=== PATIENT | female | born 1960 | race Caucasian/White ===

== ENCOUNTER 2019-07-13 03:52 | Inpatient (IN) ==
[2019-07-13] MEDS ORDERED: Naloxone 0.4 MG/ML INJ IVP PRN (07:32)
[2019-07-13] MEDS ORDERED: Ondansetron 4 MG/2 ML VIAL IVP PRN (07:32)
[2019-07-13] MEDS ORDERED: MOM Conc 10 ML UD.LIQ PO PRN (07:32)
[2019-07-13] MEDS ORDERED: Dextrose Gel 15 GM/37.5 ML TUBE PO PRN ×2 (07:40)
[2019-07-13] MEDS ORDERED: D5% in Water 1,000 ML IVC PRN (07:40)
[2019-07-13] MEDS ORDERED: *HR* Dextrose 50 % in Water (Syg) 50 ML SYRINGE IVP PRN (07:40)
[2019-07-13 08:11] LABS: Monocytes % 8.4 %
[2019-07-13 08:12] LABS: Basophils % 0.4 %; Eosinophils % 0.1 %; Hematocrit 51.8 % (35.3-44.9); Hemoglobin 13.7 g/dL (11.5-15.4); Immature Granulocytes % 1.6 % (0-4); Lymphocytes # 0.5 K/mcL (0.6-4.6); Lymphocytes % 4.5 %; Mean Corpuscular HGB Conc 26.4 g/dL (31.6-35.5); Mean Corpuscular Volume 75.5 fL (83.0-100.0); Monocytes # 0.9 K/mcL (0.0-1.3); Neutrophils # 9.2 K/mcL (1.6-8.9); Nucleated Red Blood Cells 0.8 /100 WBC (0); Platelet Count 132 K/mcL (140-400); Red Blood Count 6.86 M/mcL (3.82-4.97); Red Cell Distribution Width 23.2 % (11.5-14.5); White Blood Count 10.8 K/mcL (4.3-11.1)
[2019-07-13 08:15] LABS: INR 1.2; Prothrombin Time 14.1 Seconds (9.4-12.1)
[2019-07-13 08:22] LABS: VBG HCO3 37 mEq/L (21-27); VBG PCO2 92 mmHg (41-51); VBG PH 7.22 pH Units (7.32-7.42); VBG PO2 172 mmHg (25-50)
[2019-07-13 08:31] LABS: BUN/Creatinine Ratio 23 (6-26); Blood Urea Nitrogen 14 mg/dL (6-20); Calcium 8.6 mg/dL (8.6-10.3); Carbon Dioxide 36 mEq/L (23-29); Chloride 99 mEq/L (98-107); Glucose 173 mg/dL (70-105); Osmolality,Calculated 295 (280-300); Potassium 4.8 mEq/L (3.5-5.1); Sodium 140 mEq/L (136-145); Troponin I 0.03 ng/mL (< 0.04); eGFR For African Americans > 60 (> 60); eGFR For Non-African Americans > 60 (> 60)
[2019-07-13 08:38] LABS: Anisocytosis 2+ (Not Present); Microcytosis Present (Not Present); Platelet Estimate Slight Decrease (Normal)
[2019-07-13] MEDS ORDERED: Perflutren Lipid Microsphere 1.3 ML in 0.9 % Sodium Chloride 8.7 ML IVP ONE (09:13)
[2019-07-13] MEDS ORDERED: Perflutren Lipid Microsphere 2 ML VIAL ONE (09:18)
[2019-07-13] MEDS: Ipratropium/Albuterol Neb 3 ML IH SCH ×3 (11:35→22:29)
[2019-07-13] MEDS: Insulin LISPRO 300 UNITS/3 ML VIAL SQ SCH ×3 (12:35→23:28)
[2019-07-13 13:39] LABS: VBG HCO3 38 mEq/L (21-27); VBG PCO2 82 mmHg (41-51); VBG PH 7.27 pH Units (7.32-7.42); VBG PO2 182 mmHg (25-50)
[2019-07-13] MEDS: Acetaminophen 325 MG TABLET PO PRN (14:38)
[2019-07-13 16:38] LABS: VBG HCO3 36 mEq/L (21-27); VBG PCO2 57 mmHg (41-51); VBG PO2 206 mmHg (25-50)
[2019-07-13] MEDS ORDERED: Acetaminophen IV 1,000 MG/100 ML INFUS..BTL IVPB ONE (18:55)
[2019-07-13] MEDS: Budesonide/Formoterol 160/4.5 1 PUFF INH IH SCH (22:29)
[2019-07-14] MEDS: Acetaminophen 325 MG TABLET PO PRN (03:05)
[2019-07-14] MEDS: Ipratropium/Albuterol Neb 3 ML IH SCH ×4 (04:11→22:06)
[2019-07-14 05:33] LABS: Red Cell Distribution Width 22.5 % (11.5-14.5)
[2019-07-14 05:36] LABS: Basophils % 0.3 %; Hematocrit 43.8 % (35.3-44.9); Hemoglobin 11.8 g/dL (11.5-15.4); Immature Granulocytes % 0.6 % (0-4); Lymphocytes # 0.5 K/mcL (0.6-4.6); Lymphocytes % 8.4 %; Mean Corpuscular HGB Conc 26.9 g/dL (31.6-35.5); Mean Corpuscular Hemoglobin 19.7 pg (28.0-33.3); Monocytes # 0.6 K/mcL (0.0-1.3); Monocytes % 9.8 %; Nucleated Red Blood Cells 0.5 /100 WBC (0); Segmented Neutrophils % 80.9 %; White Blood Count 6.2 K/mcL (4.3-11.1)
[2019-07-14 05:39] LABS: Platelet Count 83 K/mcL (140-400)
[2019-07-14 05:40] LABS: INR 1.6; Prothrombin Time 17.9 Seconds (9.4-12.1)
[2019-07-14] MEDS: Insulin LISPRO 300 UNITS/3 ML VIAL SQ SCH ×2 (05:42→22:26)
[2019-07-14 05:51] LABS: BUN/Creatinine Ratio 25 (6-26); Blood Urea Nitrogen 12 mg/dL (6-20); Calcium 8.5 mg/dL (8.6-10.3); Carbon Dioxide 36 mEq/L (23-29); Chloride 98 mEq/L (98-107); Glucose 95 mg/dL (70-105); Osmolality,Calculated 290 (280-300); Potassium 4.6 mEq/L (3.5-5.1); Sodium 140 mEq/L (136-145); eGFR For African Americans > 60 (> 60); eGFR For Non-African Americans > 60 (> 60)
[2019-07-14 06:43] LABS: Anisocytosis 2+ (Not Present); Hypochromasia Present (Not Present); Platelet Estimate Decreased (Normal); Polychromasia 1+ (Not Present)
[2019-07-14 06:44] LABS: Microcytosis Present (Not Present)
[2019-07-14] MEDS: Budesonide/Formoterol 160/4.5 1 PUFF INH IH SCH ×2 (09:48→22:06)
[2019-07-14] MEDS ORDERED: CeFAZolin Syr 3,000MG/30 ML 3,000 MG/30 ML SYRINGE IVPB ONE (10:52)
[2019-07-14] MEDS ORDERED: Ethanol\\Acetic Acid\\Na Ace\\Ben 1,000 ML IRRIG.SOLN IR ONE (10:53)
[2019-07-14] MEDS ORDERED: *HR* Vasopressin 20 UNIT/ML VIAL ONE (10:58)
[2019-07-14] MEDS ORDERED: EPHEDrine 50 MG/ML VIAL ONE (11:05)
[2019-07-14] MEDS ORDERED: *HR* FentaNYL (PF) 100 MCG/2 ML VIAL ONE (11:10)
[2019-07-14] MEDS ORDERED: *HR* Midazolam HCl 2 MG/2 ML VIAL ONE (11:10)
[2019-07-14] MEDS ORDERED: Lidocaine -MPF 2% 2 ML VIAL ONE (11:11)
[2019-07-14] MEDS ORDERED: *HR* Succinylcholine 200 MG/10 ML VIAL IVP ONE (11:11)
[2019-07-14] MEDS ORDERED: Tranexamic Acid 1,000 MG/10 ML VIAL ONE (11:11)
[2019-07-14] MEDS ORDERED: *HR* Propofol 200 MG/20 ML VIAL IVP ONE (11:12)
[2019-07-14] MEDS ORDERED: Ropivacaine/PF 0.5% 30 ML VIAL ONE (11:15)
[2019-07-14] MEDS ORDERED: ROPIVACAINE/PF/NS 0.25% 1 EACH SYRINGE INTRAART ONE ×2 (11:16)
[2019-07-14] MEDS ORDERED: Total Joint Mixture (50 ml) IR ONE (12:15)
[2019-07-14] MEDS ORDERED: *HR* Magnesium Sulfate 1 GM/2 ML VIAL ONE (12:54)
[2019-07-14] MEDS ORDERED: Ondansetron 4 MG/2 ML VIAL ONE (13:08)
[2019-07-14] MEDS ORDERED: Dexamethasone 4 MG/ML VIAL ONE (13:08)
[2019-07-14] MEDS: *HR* HYDROmorphone (PF) 1 MG/ML SYRINGE IVP PRN ×2 (15:19→15:29)
[2019-07-14 15:29] LABS: Hematocrit 36.1 % (35.3-44.9); Hemoglobin 9.9 g/dL (11.5-15.4)
[2019-07-14] MEDS ORDERED: *HR* Dextrose 50 % in Water (Syg) 50 ML SYRINGE IVP PRN (16:27)
[2019-07-14] MEDS ORDERED: Sennosides 8.6 MG TABLET PO PRN (16:27)
[2019-07-14] MEDS ORDERED: Ondansetron 4 MG/2 ML VIAL IVP PRN ×2 (16:27)
[2019-07-14] MEDS ORDERED: D5% in Water 1,000 ML IVC PRN (16:27)
[2019-07-14] MEDS ORDERED: Naloxone 0.4 MG/ML INJ IVP PRN (16:27)
[2019-07-14] MEDS ORDERED: traMADol 50 MG TABLET PO PRN (16:27)
[2019-07-14] MEDS ORDERED: MOM Conc 10 ML UD.LIQ PO PRN ×2 (16:27)
[2019-07-14] MEDS ORDERED: Dextrose Gel 15 GM/37.5 ML TUBE PO PRN ×2 (16:27)
[2019-07-14] MEDS ORDERED: Temazepam 15 MG CAPSULE PO PRN (16:27)
[2019-07-14] MEDS ORDERED: *HR* Promethazine 25 MG/ML VIAL IVP PRN (16:27)
[2019-07-14] MEDS: Ascorbic Acid 500 MG TABLET PO SCH (17:48)
[2019-07-14] MEDS ORDERED: Insulin LISPRO 300 UNITS/3 ML VIAL SQ SCH (18:00)
[2019-07-14] MEDS: ceFAZolin 3,000 MG in 0.9 % Sodium Chloride 100 ML IVPB SCH (22:18)
[2019-07-14] MEDS: Ringers Solution, Lactated 1,000 ML IVC SCH (22:19)
[2019-07-15] MEDS: *HR* OxyCODONE Immed Rel 5 MG TABLET PO PRN ×4 (01:28→17:25)
[2019-07-15] MEDS: Ipratropium/Albuterol Neb 3 ML IH SCH ×4 (03:59→21:35)
[2019-07-15 04:32] LABS: Immature Granulocytes % 0.4 % (0-4)
[2019-07-15 04:33] LABS: Basophils % 0.1 %; Hematocrit 30.6 % (35.3-44.9); Hemoglobin 8.6 g/dL (11.5-15.4); Lymphocytes # 0.4 K/mcL (0.6-4.6); Mean Corpuscular HGB Conc 28.1 g/dL (31.6-35.5); Mean Corpuscular Hemoglobin 20.3 pg (28.0-33.3); Mean Corpuscular Volume 72.3 fL (83.0-100.0); Monocytes # 0.7 K/mcL (0.0-1.3); Monocytes % 9.4 %; Red Blood Count 4.23 M/mcL (3.82-4.97); Segmented Neutrophils % 85.1 %; White Blood Count 7.7 K/mcL (4.3-11.1)
[2019-07-15 04:34] LABS: Neutrophils # 6.6 K/mcL (1.6-8.9); Platelet Count 97 K/mcL (140-400)
[2019-07-15 04:55] LABS: BUN/Creatinine Ratio 20 (6-26); Blood Urea Nitrogen 12 mg/dL (6-20); Calcium 8.1 mg/dL (8.6-10.3); Carbon Dioxide 40 mEq/L (23-29); Chloride 98 mEq/L (98-107); Glucose 157 mg/dL (70-105); Osmolality,Calculated 289 (280-300); Potassium 4.1 mEq/L (3.5-5.1); Sodium 138 mEq/L (136-145); eGFR For African Americans > 60 (> 60); eGFR For Non-African Americans > 60 (> 60)
[2019-07-15 05:00] LABS: Hypochromasia Present (Not Present); Platelet Estimate Decreased (Normal); Poikilocytosis 1+ (Not Present)
[2019-07-15] MEDS: ceFAZolin 3,000 MG in 0.9 % Sodium Chloride 100 ML IVPB SCH (05:15)
[2019-07-15] MEDS: Multivit/Ca/Min/Fe/FA 1 TAB TABLET PO SCH (07:39)
[2019-07-15] MEDS: Ascorbic Acid 500 MG TABLET PO SCH ×2 (07:39→17:25)
[2019-07-15] MEDS: Insulin LISPRO 300 UNITS/3 ML VIAL SQ SCH ×4 (09:07→20:40)
[2019-07-15] MEDS: Budesonide/Formoterol 160/4.5 1 PUFF INH IH SCH ×2 (10:13→21:35)
[2019-07-15] MEDS: Aspirin Enteric Coated 81 MG Tablet PO SCH (11:54)
[2019-07-15] MEDS ORDERED: Furosemide 20 MG TABLET PO PRN (12:42)
[2019-07-15] MEDS ORDERED: ALPRAZolam 0.5 MG TABLET PO PRN (13:19)
[2019-07-16] MEDS: Ipratropium/Albuterol Neb 3 ML IH SCH ×4 (03:34→22:09)
[2019-07-16 04:38] LABS: Basophils % 0.2 %; Red Cell Distribution Width 21.7 % (11.5-14.5)
[2019-07-16 04:40] LABS: Eosinophils % 0.8 %; Hematocrit 28.5 % (35.3-44.9); Hemoglobin 7.5 g/dL (11.5-15.4); Immature Granulocytes % 0.2 % (0-4); Lymphocytes # 0.6 K/mcL (0.6-4.6); Lymphocytes % 11.6 %; Mean Corpuscular HGB Conc 26.3 g/dL (31.6-35.5); Mean Corpuscular Hemoglobin 19.8 pg (28.0-33.3); Mean Corpuscular Volume 75.2 fL (83.0-100.0); Monocytes # 0.4 K/mcL (0.0-1.3); Monocytes % 8.4 %; Red Blood Count 3.79 M/mcL (3.82-4.97); Segmented Neutrophils % 78.8 %
[2019-07-16 04:41] LABS: Neutrophils # 3.9 K/mcL (1.6-8.9); Platelet Count 83 K/mcL (140-400)
[2019-07-16 04:53] LABS: VBG HCO3 45 mEq/L (21-27); VBG PCO2 71 mmHg (41-51); VBG PH 7.41 pH Units (7.32-7.42); VBG PO2 258 mmHg (25-50)
[2019-07-16 04:57] LABS: Anisocytosis 3+ (Not Present); Hypochromasia Present (Not Present); Macrocytosis Present (Not Present); Microcytosis Present (Not Present); Platelet Estimate Decreased (Normal)
[2019-07-16] MEDS: HYDROcodone BIT/Homatropine 5 MG TABLET PO PRN ×2 (04:59→19:13)
[2019-07-16 05:00] LABS: % Iron Saturation 5 % (15-50); Iron 12 mcg/dL (50-170); Transferrin 180 mg/dL (203-362)
[2019-07-16 05:06] LABS: BUN/Creatinine Ratio 20 (6-26); Blood Urea Nitrogen 8 mg/dL (6-20); Calcium 8.2 mg/dL (8.6-10.3); Carbon Dioxide 42 mEq/L (23-29); Chloride 94 mEq/L (98-107); Glucose 97 mg/dL (70-105); Osmolality,Calculated 286 (280-300); Potassium 3.8 mEq/L (3.5-5.1); Sodium 139 mEq/L (136-145); eGFR For African Americans > 60 (> 60); eGFR For Non-African Americans > 60 (> 60)
[2019-07-16 05:19] LABS: Ferritin 26 ng/mL (10-120)
[2019-07-16 05:25] LABS: Folate 21.7 ng/mL (3.0-16.0)
[2019-07-16] MEDS: Insulin LISPRO 300 UNITS/3 ML VIAL SQ SCH ×4 (08:41→20:21)
[2019-07-16] MEDS: Aspirin Enteric Coated 81 MG Tablet PO SCH (09:51)
[2019-07-16] MEDS: Iron Sucrose Complex 250 MG in 0.9 % Sodium Chloride 250 ML IVPB SCH (09:51)
[2019-07-16] MEDS: Ascorbic Acid 500 MG TABLET PO SCH ×2 (09:52→17:07)
[2019-07-16] MEDS: Loratadine 10 MG TABLET PO SCH (09:52)
[2019-07-16] MEDS: Multivit/Ca/Min/Fe/FA 1 TAB TABLET PO SCH (09:52)
[2019-07-16] MEDS: Budesonide/Formoterol 160/4.5 1 PUFF INH IH SCH ×2 (10:00→22:09)
[2019-07-16 10:08] LABS: VBG HCO3 43 mEq/L (21-27); VBG PCO2 63 mmHg (41-51); VBG PH 7.44 pH Units (7.32-7.42); VBG PO2 153 mmHg (25-50)
[2019-07-16] MEDS: Ringers Solution, Lactated 1,000 ML IVC SCH (17:09)
[2019-07-16] MEDS ORDERED: 0.9 % Sodium Chloride 250 ML IVC SCH (19:00)
[2019-07-16] MEDS ORDERED: Furosemide 20 MG/2 ML VIAL IVP ONE (19:00)
[2019-07-17] MEDS ORDERED: Furosemide 20 MG/2 ML VIAL IVP ONE ×2 (03:57→04:00)
[2019-07-17] MEDS: Ipratropium/Albuterol Neb 3 ML IH SCH ×4 (04:54→22:16)
[2019-07-17 05:12] LABS: VBG HCO3 42 mEq/L (21-27); VBG PCO2 55 mmHg (41-51); VBG PH 7.49 pH Units (7.32-7.42); VBG PO2 117 mmHg (25-50)
[2019-07-17 05:15] LABS: Red Cell Distribution Width 21.4 % (11.5-14.5)
[2019-07-17 05:16] LABS: Hematocrit 35.1 % (35.3-44.9); Hemoglobin 9.7 g/dL (11.5-15.4); Mean Corpuscular HGB Conc 27.6 g/dL (31.6-35.5); Mean Corpuscular Hemoglobin 21.1 pg (28.0-33.3); Mean Corpuscular Volume 76.3 fL (83.0-100.0); White Blood Count 4.5 K/mcL (4.3-11.1)
[2019-07-17 05:23] LABS: Platelet Count 99 K/mcL (140-400)
[2019-07-17 05:35] LABS: BUN/Creatinine Ratio 20 (6-26); Blood Urea Nitrogen 9 mg/dL (6-20); Calcium 8.6 mg/dL (8.6-10.3); Carbon Dioxide 41 mEq/L (23-29); Chloride 92 mEq/L (98-107); Glucose 117 mg/dL (70-105); Osmolality,Calculated 288 (280-300); Potassium 3.5 mEq/L (3.5-5.1); Sodium 139 mEq/L (136-145); eGFR For African Americans > 60 (> 60); eGFR For Non-African Americans > 60 (> 60)
[2019-07-17] MEDS: Aspirin Enteric Coated 81 MG Tablet PO SCH (07:54)
[2019-07-17] MEDS: Loratadine 10 MG TABLET PO SCH (07:54)
[2019-07-17] MEDS: Ascorbic Acid 500 MG TABLET PO SCH ×2 (07:55→16:01)
[2019-07-17] MEDS: Multivit/Ca/Min/Fe/FA 1 TAB TABLET PO SCH (07:55)
[2019-07-17] MEDS: Insulin LISPRO 300 UNITS/3 ML VIAL SQ SCH ×5 (07:56→21:49)
[2019-07-17] MEDS: Iron Sucrose Complex 250 MG in 0.9 % Sodium Chloride 250 ML IVPB SCH (09:33)
[2019-07-17] MEDS: ALPRAZolam 0.5 MG TABLET PO SCH ×3 (10:20→21:49)
[2019-07-17] MEDS: Budesonide/Formoterol 160/4.5 1 PUFF INH IH SCH ×3 (10:58→22:16)
[2019-07-17] MEDS ORDERED: Haloperidol Lactate 5 MG/ML VIAL IVP ONE (14:38)
[2019-07-17] MEDS: *HR* OxyCODONE Immed Rel 5 MG TABLET PO PRN (16:09)
[2019-07-17] MEDS: Ringers Solution, Lactated 1,000 ML IVC SCH (19:00)
[2019-07-17] MEDS ORDERED: Dexmedetomidine HCl 400 MCG/100 ML MLS IVC SCH (20:30)
[2019-07-17] MEDS ORDERED: Ondansetron 4 MG/2 ML VIAL IVP PRN (21:15)
[2019-07-17] MEDS ORDERED: Ringers Solution, Lactated 1,000 ML IVC SCH (21:15)
[2019-07-17] MEDS ORDERED: Naloxone 0.4 MG/ML INJ IVP PRN (21:15)
[2019-07-17] MEDS ORDERED: MOM Conc 10 ML UD.LIQ PO PRN (21:15)
[2019-07-17] MEDS ORDERED: 0.9 % Sodium Chloride 250 ML IVC SCH (21:15)
[2019-07-17] MEDS ORDERED: *HR* Dextrose 50 % in Water (Syg) 50 ML SYRINGE IVP PRN (21:15)
[2019-07-17] MEDS ORDERED: Sennosides 8.6 MG TABLET PO PRN (21:15)
[2019-07-17] MEDS ORDERED: Dextrose Gel 15 GM/37.5 ML TUBE PO PRN ×2 (21:15)
[2019-07-17] MEDS ORDERED: D5% in Water 1,000 ML IVC PRN (21:15)
[2019-07-17 22:10] LABS: ABG Base Excess 17 mEq/L (-2 to 3); ABG HCO3 44 mEq/L (21-27); ABG Oxygen Saturation 94 % (95-98); ABG PCO2 64 mmHg (35-45); ABG PH 7.45 pH Units (7.32-7.45); ABG PO2 71 mmHg (85-104); ABG TCO2 46 mEq/L (20-26)
[2019-07-17] MEDS: Dexmedetomidine HCl 400 MCG/100 ML MLS IVC SCH (22:28)
[2019-07-18 01:04] LABS: Hematocrit 32.1 % (35.3-44.9); Hemoglobin 9.3 g/dL (11.5-15.4); Mean Corpuscular Hemoglobin 21.6 pg (28.0-33.3); Mean Corpuscular Volume 74.7 fL (83.0-100.0); Platelet Count 106 K/mcL (140-400); Red Cell Distribution Width 22.1 % (11.5-14.5); White Blood Count 3.2 K/mcL (4.3-11.1)
[2019-07-18 01:14] LABS: VBG HCO3 42 mEq/L (21-27); VBG PCO2 46 mmHg (41-51); VBG PH 7.57 pH Units (7.32-7.42); VBG PO2 235 mmHg (25-50)
[2019-07-18 01:20] LABS: BUN/Creatinine Ratio 21 (6-26); Blood Urea Nitrogen 7 mg/dL (6-20); Calcium 8.2 mg/dL (8.6-10.3); Carbon Dioxide 41 mEq/L (23-29); Chloride 95 mEq/L (98-107); Glucose 117 mg/dL (70-105); Osmolality,Calculated 289 (280-300); Potassium 3.6 mEq/L (3.5-5.1); Sodium 140 mEq/L (136-145); eGFR For African Americans > 60 (> 60); eGFR For Non-African Americans > 60 (> 60)
[2019-07-18] MEDS: Ipratropium/Albuterol Neb 3 ML IH SCH ×4 (03:28→22:01)
[2019-07-18] MEDS: Dexmedetomidine HCl 400 MCG/100 ML MLS IVC SCH (03:35)
[2019-07-18] MEDS: Insulin LISPRO 300 UNITS/3 ML VIAL SQ SCH ×4 (09:33→23:45)
[2019-07-18] MEDS: Ascorbic Acid 500 MG TABLET PO SCH ×2 (09:38→15:56)
[2019-07-18] MEDS: Multivit/Ca/Min/Fe/FA 1 TAB TABLET PO SCH (09:39)
[2019-07-18] MEDS: Aspirin Enteric Coated 81 MG Tablet PO SCH (09:39)
[2019-07-18] MEDS: Loratadine 10 MG TABLET PO SCH (09:39)
[2019-07-18] MEDS: ALPRAZolam 0.5 MG TABLET PO SCH ×3 (09:44→20:17)
[2019-07-18] MEDS: Iron Sucrose Complex 250 MG in 0.9 % Sodium Chloride 250 ML IVPB SCH (10:00)
[2019-07-18] MEDS: Budesonide/Formoterol 160/4.5 1 PUFF INH IH SCH ×2 (11:05→22:02)
[2019-07-18] MEDS: Azithromycin 250 MG TABLET PO SCH (12:15)
[2019-07-18] MEDS: HYDROcodone BIT/Homatropine 5 MG TABLET PO PRN (20:18)
[2019-07-19 01:11] LABS: Bilirubin,Urine Negative (Negative); Blood,Urine Negative (Negative); Clarity,Urine Clear (Clear); Color,Urine Yellow (Yellow); Glucose,Urine (UA) Normal (Normal); Ketones,Urine Negative (Negative); Leukocyte Esterase,Urine Small (Negative); Nitrite,Urine Negative (Negative); Protein,Urine Trace mg/dL (Neg-Trace); Specific Gravity,Urine 1.023 (1.010-1.025); Urobilinogen,Urine Normal (Normal)
[2019-07-19 01:13] LABS: Bacteria,Urine None Seen per hpf (None-Few); Hyaline Casts,Urine None Seen per lpf (None-Few); Squamous Epithelial Cell,Urine Many per lpf (None-Few)
[2019-07-19 01:54] LABS: Basophils % 0.6 %; Hematocrit 33.4 % (35.3-44.9)
[2019-07-19 01:56] LABS: Eosinophils # 0.1 K/mcL (0.0-0.6); Eosinophils % 2.2 %; Hemoglobin 9.5 g/dL (11.5-15.4); Immature Granulocytes % 1.1 % (0-4); Lymphocytes # 0.5 K/mcL (0.6-4.6); Lymphocytes % 14.8 %; Mean Corpuscular HGB Conc 28.4 g/dL (31.6-35.5); Mean Corpuscular Hemoglobin 21.5 pg (28.0-33.3); Mean Corpuscular Volume 75.6 fL (83.0-100.0); Mean Platelet Volume 9.6 fL (9.4-12.4); Monocytes # 0.4 K/mcL (0.0-1.3); Monocytes % 10.9 %; Neutrophils # 2.5 K/mcL (1.6-8.9); Platelet Count 121 K/mcL (140-400); Red Blood Count 4.42 M/mcL (3.82-4.97); Red Cell Distribution Width 23.2 % (11.5-14.5); Segmented Neutrophils % 70.4 %; White Blood Count 3.6 K/mcL (4.3-11.1)
[2019-07-19 02:12] LABS: BUN/Creatinine Ratio 25 (6-26); Blood Urea Nitrogen 13 mg/dL (6-20); Calcium 8.2 mg/dL (8.6-10.3); Carbon Dioxide 37 mEq/L (23-29); Chloride 95 mEq/L (98-107); Glucose 162 mg/dL (70-105); Osmolality,Calculated 290 (280-300); Sodium 138 mEq/L (136-145); eGFR For African Americans > 60 (> 60); eGFR For Non-African Americans > 60 (> 60)
[2019-07-19 02:30] LABS: Anisocytosis 1+ (Not Present); Hypochromasia Present (Not Present); Platelet Estimate Decreased (Normal); Poikilocytosis 1+ (Not Present)
[2019-07-19] MEDS: Ipratropium/Albuterol Neb 3 ML IH SCH ×4 (03:59→22:26)
[2019-07-19 04:27] LABS: ABG Base Excess 19 mEq/L (-2 to 3); ABG HCO3 45 mEq/L (21-27); ABG Oxygen Saturation 96 % (95-98); ABG PCO2 63 mmHg (35-45); ABG PH 7.46 pH Units (7.32-7.45); ABG PO2 81 mmHg (85-104); ABG TCO2 47 mEq/L (20-26); Blood Gas FiO2 2.5 (1-15=lpm or21-100=%)
[2019-07-19] MEDS: HYDROcodone BIT/Homatropine 5 MG TABLET PO PRN ×3 (06:45→20:48)
[2019-07-19] MEDS: Insulin LISPRO 300 UNITS/3 ML VIAL SQ SCH ×4 (08:36→20:53)
[2019-07-19] MEDS: Aspirin Enteric Coated 81 MG Tablet PO SCH (08:45)
[2019-07-19] MEDS: Ascorbic Acid 500 MG TABLET PO SCH ×2 (08:45→18:18)
[2019-07-19] MEDS: Multivit/Ca/Min/Fe/FA 1 TAB TABLET PO SCH (08:46)
[2019-07-19] MEDS: Loratadine 10 MG TABLET PO SCH (08:46)
[2019-07-19] MEDS: ALPRAZolam 0.5 MG TABLET PO SCH ×3 (08:46→20:49)
[2019-07-19] MEDS: Budesonide/Formoterol 160/4.5 1 PUFF INH IH SCH ×2 (09:37→22:26)
[2019-07-19] MEDS: Iron Sucrose Complex 250 MG in 0.9 % Sodium Chloride 250 ML IVPB SCH (10:50)
[2019-07-19] MEDS: predniSONE 20 MG TABLET PO SCH (10:50)
[2019-07-19] MEDS: Azithromycin 250 MG TABLET PO SCH (11:00)
[2019-07-20] MEDS: Ipratropium/Albuterol Neb 3 ML IH SCH ×4 (04:17→22:06)
[2019-07-20 05:23] LABS: Hematocrit 35.6 % (35.3-44.9); Hemoglobin 9.6 g/dL (11.5-15.4); Mean Corpuscular Hemoglobin 21.8 pg (28.0-33.3); Mean Corpuscular Volume 80.7 fL (83.0-100.0); Mean Platelet Volume 9.7 fL (9.4-12.4); Platelet Count 134 K/mcL (140-400); Red Blood Count 4.41 M/mcL (3.82-4.97); Red Cell Distribution Width 24.4 % (11.5-14.5); White Blood Count 3.3 K/mcL (4.3-11.1)
[2019-07-20 05:40] LABS: BUN/Creatinine Ratio 26 (6-26); Blood Urea Nitrogen 10 mg/dL (6-20); Calcium 8.3 mg/dL (8.6-10.3); Carbon Dioxide 40 mEq/L (23-29); Chloride 98 mEq/L (98-107); Glucose 105 mg/dL (70-105); Osmolality,Calculated 291 (280-300); Potassium 4.1 mEq/L (3.5-5.1); Sodium 141 mEq/L (136-145); eGFR For African Americans > 60 (> 60); eGFR For Non-African Americans > 60 (> 60)
[2019-07-20] MEDS: Insulin LISPRO 300 UNITS/3 ML VIAL SQ SCH ×4 (09:08→22:53)
[2019-07-20] MEDS: predniSONE 20 MG TABLET PO SCH (09:17)
[2019-07-20] MEDS: HYDROcodone BIT/Homatropine 5 MG TABLET PO PRN ×3 (09:17→22:51)
[2019-07-20] MEDS: Multivit/Ca/Min/Fe/FA 1 TAB TABLET PO SCH (09:17)
[2019-07-20] MEDS: Ascorbic Acid 500 MG TABLET PO SCH ×2 (09:17→16:17)
[2019-07-20] MEDS: ALPRAZolam 0.5 MG TABLET PO SCH ×3 (09:17→22:51)
[2019-07-20] MEDS: Loratadine 10 MG TABLET PO SCH (09:18)
[2019-07-20] MEDS: Aspirin Enteric Coated 81 MG Tablet PO SCH (09:18)
[2019-07-20] MEDS: Iron Sucrose Complex 250 MG in 0.9 % Sodium Chloride 250 ML IVPB SCH (10:19)
[2019-07-20] MEDS: Budesonide/Formoterol 160/4.5 1 PUFF INH IH SCH ×2 (10:26→22:06)
[2019-07-20] MEDS: Azithromycin 250 MG TABLET PO SCH (13:17)
[2019-07-21] MEDS: Ipratropium/Albuterol Neb 3 ML IH SCH ×3 (03:50→16:29)
[2019-07-21 06:25] LABS: Hematocrit 35.6 % (35.3-44.9); Hemoglobin 9.8 g/dL (11.5-15.4); Mean Corpuscular HGB Conc 27.5 g/dL (31.6-35.5); Mean Corpuscular Hemoglobin 21.9 pg (28.0-33.3); Mean Corpuscular Volume 79.6 fL (83.0-100.0); Mean Platelet Volume 10.2 fL (9.4-12.4); Platelet Count 175 K/mcL (140-400); Red Blood Count 4.47 M/mcL (3.82-4.97); Red Cell Distribution Width 25.2 % (11.5-14.5); White Blood Count 3.4 K/mcL (4.3-11.1)
[2019-07-21 06:46] LABS: BUN/Creatinine Ratio 38 (6-26); Blood Urea Nitrogen 15 mg/dL (6-20); Calcium 8.3 mg/dL (8.6-10.3); Carbon Dioxide 38 mEq/L (23-29); Chloride 98 mEq/L (98-107); Glucose 148 mg/dL (70-105); Osmolality,Calculated 300 (280-300); Potassium 3.9 mEq/L (3.5-5.1); Sodium 143 mEq/L (136-145); eGFR For African Americans > 60 (> 60); eGFR For Non-African Americans > 60 (> 60)
[2019-07-21] MEDS: Aspirin Enteric Coated 81 MG Tablet PO SCH (07:41)
[2019-07-21] MEDS: ALPRAZolam 0.5 MG TABLET PO SCH ×2 (07:41→16:19)
[2019-07-21] MEDS: predniSONE 20 MG TABLET PO SCH (07:41)
[2019-07-21] MEDS: Ascorbic Acid 500 MG TABLET PO SCH ×2 (07:41→16:19)
[2019-07-21] MEDS: Azithromycin 250 MG TABLET PO SCH (07:42)
[2019-07-21] MEDS: Multivit/Ca/Min/Fe/FA 1 TAB TABLET PO SCH (07:42)
[2019-07-21] MEDS: Loratadine 10 MG TABLET PO SCH (07:42)
[2019-07-21] MEDS: Insulin LISPRO 300 UNITS/3 ML VIAL SQ SCH ×2 (07:53→17:22)
[2019-07-21] MEDS: Budesonide/Formoterol 160/4.5 1 PUFF INH IH SCH (10:27)
[2019-07-21 11:19] VITALS: BP 139/82
== END 2019-07-21 19:10 | DRG 302 ==
LOC: 3NENU → SUATTDRO 05:28 → 2NNU 07-17 21:53 → 3NENU 07-19 13:10
PROVIDERS: ADMIT Internal Medicine; ATTEND Internal Medicine

== ENCOUNTER 2021-06-26 22:33 | Inpatient (IN) ==
[2021-06-27] MEDS ORDERED: Melatonin 3 MG TABLET PO PRN (01:23)
[2021-06-27] MEDS ORDERED: Naloxone 0.4 MG/ML INJ IVP PRN (01:23)
[2021-06-27] MEDS ORDERED: Ondansetron 4 MG/2 ML VIAL IVP PRN (01:23)
[2021-06-27] MEDS ORDERED: Acetaminophen 325 MG TABLET PO PRN (01:23)
[2021-06-27] MEDS ORDERED: methylPREDNISolone 125 MG/2 ML VIAL IVP ONE (01:55)
[2021-06-27] MEDS ORDERED: Dextrose Gel 15 GM/37.5 ML TUBE PO PRN ×2 (02:01)
[2021-06-27] MEDS ORDERED: *HR* Dextrose 50 % in Water (Syg) 50 ML SYRINGE IVP PRN (02:01)
[2021-06-27] MEDS ORDERED: D5% in Water 1,000 ML IVC PRN (02:01)
[2021-06-27 02:15] LABS: Monocytes % 1.1 %
[2021-06-27 02:16] LABS: Basophils % 0.2 %; Eosinophils % 0.2 %; Hematocrit 46.6 % (35.3-44.9); Hemoglobin 15.1 g/dL (11.5-15.4); Immature Granulocytes % 0.5 % (0-4); Immature Platelets 3.7 % (1.1-6.1); Lymphocytes # 0.4 K/mcL (0.6-4.6); Lymphocytes % 5.7 %; Mean Corpuscular HGB Conc 32.4 g/dL (31.6-35.5); Mean Corpuscular Hemoglobin 30.3 pg (28.0-33.3); Mean Corpuscular Volume 93.6 fL (83.0-100.0); Mean Platelet Volume 10.7 fL (9.4-12.4); Monocytes # 0.1 K/mcL (0.0-1.3); Red Blood Count 4.98 M/mcL (3.82-4.97); Red Cell Distribution Width 15.3 % (11.5-14.5); Segmented Neutrophils % 92.3 %; White Blood Count 6.3 K/mcL (4.3-11.1)
[2021-06-27 02:19] LABS: Neutrophils # 5.8 K/mcL (1.6-8.9); Platelet Count 90 K/mcL (140-400)
[2021-06-27] MEDS: Azithromycin 250 MG TABLET PO SCH (02:28)
[2021-06-27 02:39] LABS: Alanine Aminotransferase < 3 Units/L (7-52); Albumin 3.5 g/dL (3.5-5.7); Albumin/Globulin Ratio 1.3 (1.1-2.2); Alkaline Phosphatase 94 Units/L (34-104); Aspartate Amino Transferase 8 Units/L (13-39); BUN/Creatinine Ratio 33 (6-26); Bilirubin,Total 0.4 mg/dL (0.3-1.0); Blood Urea Nitrogen 14 mg/dL (6-20); Calcium 9.1 mg/dL (8.6-10.3); Carbon Dioxide 35 mEq/L (23-29); Chloride 93 mEq/L (98-107); Globulin 2.7 g/dL (2.4-3.5); Glucose 269 mg/dL (70-105); Osmolality,Calculated 292 (280-300); Sodium 136 mEq/L (136-145); Total Protein 6.2 g/dL (6.4-8.9); eGFR For African Americans > 60 (> 60); eGFR For Non-African Americans > 60 (> 60)
[2021-06-27] MEDS: *HR* Heparin 5,000 UNIT/ML VIAL SQ SCH ×2 (05:00→18:08)
[2021-06-27] MEDS: Budesonide/Formoterol 160/4.5 1 PUFF INH IH SCH ×2 (07:58→21:30)
[2021-06-27] MEDS: predniSONE 20 MG TABLET PO SCH (08:08)
[2021-06-27] MEDS: ALPRAZolam 1 MG TABLET PO PRN ×2 (08:08→20:31)
[2021-06-27] MEDS: lisinopriL 10 MG TABLET PO SCH (08:09)
[2021-06-27] MEDS: Loratadine 10 MG TABLET PO SCH (08:09)
[2021-06-27] MEDS: Insulin LISPRO 300 UNITS/3 ML VIAL SUBQ SCH ×3 (08:10→18:07)
[2021-06-27] MEDS: Nicotine 21 MG PATCH.TD24 TD SCH (18:06)
[2021-06-27] MEDS ORDERED: Insulin LISPRO 300 UNITS/3 ML VIAL SUBQ SCH (21:00)
[2021-06-28] MEDS: *HR* Heparin 5,000 UNIT/ML VIAL SQ SCH ×2 (05:38→17:32)
[2021-06-28 07:52] LABS: BUN/Creatinine Ratio 45 (6-26); Blood Urea Nitrogen 27 mg/dL (6-20); Calcium 8.8 mg/dL (8.6-10.3); Carbon Dioxide 41 mEq/L (23-29); Chloride 94 mEq/L (98-107); Glucose 305 mg/dL (70-105); Osmolality,Calculated 305 (280-300); Potassium 3.4 mEq/L (3.5-5.1); Sodium 139 mEq/L (136-145); eGFR For African Americans > 60 (> 60); eGFR For Non-African Americans > 60 (> 60)
[2021-06-28] MEDS: Nicotine 21 MG PATCH.TD24 TD SCH (10:03)
[2021-06-28] MEDS: lisinopriL 10 MG TABLET PO SCH (10:03)
[2021-06-28] MEDS: predniSONE 20 MG TABLET PO SCH (10:03)
[2021-06-28] MEDS: Loratadine 10 MG TABLET PO SCH (10:03)
[2021-06-28] MEDS: Azithromycin 250 MG TABLET PO SCH ×2 (10:13→10:30)
[2021-06-28] MEDS: Insulin LISPRO 300 UNITS/3 ML VIAL SUBQ SCH ×3 (10:20→17:32)
[2021-06-28] MEDS: Budesonide/Formoterol 160/4.5 1 PUFF INH IH SCH ×2 (10:24→20:27)
[2021-06-28 10:37] LABS: Estimated Average Glucose 148 mg/dl; Hemoglobin A1C 6.8 %
[2021-06-28] MEDS: ALPRAZolam 1 MG TABLET PO PRN (20:57)
[2021-06-28] MEDS ORDERED: Insulin LISPRO 300 UNITS/3 ML VIAL SUBQ SCH (21:00)
[2021-06-28] MEDS ORDERED: Insulin DETEMIR 100 UNIT/ML X5UNITS SUBQ SCH (21:00)
[2021-06-29 02:54] LABS: BUN/Creatinine Ratio 60 (6-26); Blood Urea Nitrogen 29 mg/dL (6-20); Calcium 8.5 mg/dL (8.6-10.3); Carbon Dioxide 40 mEq/L (23-29); Chloride 97 mEq/L (98-107); Glucose 235 mg/dL (70-105); Osmolality,Calculated 301 (280-300); Potassium 4.1 mEq/L (3.5-5.1); Sodium 139 mEq/L (136-145); eGFR For African Americans > 60 (> 60); eGFR For Non-African Americans > 60 (> 60)
[2021-06-29] MEDS: *HR* Heparin 5,000 UNIT/ML VIAL SQ SCH ×2 (05:57→17:02)
[2021-06-29] MEDS: Insulin LISPRO 300 UNITS/3 ML VIAL SUBQ SCH ×3 (09:15→17:02)
[2021-06-29] MEDS: predniSONE 20 MG TABLET PO SCH ×2 (09:25→09:29)
[2021-06-29] MEDS: Azithromycin 250 MG TABLET PO SCH (09:25)
[2021-06-29] MEDS: lisinopriL 10 MG TABLET PO SCH (09:26)
[2021-06-29] MEDS: Loratadine 10 MG TABLET PO SCH (09:26)
[2021-06-29] MEDS: Nicotine 21 MG PATCH.TD24 TD SCH (09:29)
[2021-06-29] MEDS: Budesonide/Formoterol 160/4.5 1 PUFF INH IH SCH (10:38)
[2021-06-29 10:48] VITALS: BP 110/64; PULSE 81; TEMP 98.3; O2SAT 94
[2021-06-30] MEDS ORDERED: Furosemide 20 MG TABLET PO SCH (09:00)
== END 2021-06-29 20:15 | disposition home or self-care (01) | DRG 140 ==
LOC: 3BNU → SUATTDRO 06-27 00:41
PROVIDERS: ADMIT Family Medicine; ATTEND Registered Nurse